=== PATIENT | female | born 1955 | race Caucasian/White ===

== ENCOUNTER 2021-11-07 07:26 | Emergency (ER) | payer MEDICARE ==
[~2021-11-07] VITALS: Ht 170.2 cm; Wt 90.7 kg
[2021-11-07] MEDS ORDERED: METR500 PO (07:58)
[2021-11-07] MEDS ORDERED: OMEP20ER PO (07:58)
[2021-11-07] MEDS ORDERED: NITR100CA PO (07:58)
[2021-11-07] MEDS ORDERED: LISI20 PO (07:58)
[2021-11-07] MEDS ORDERED: OXAYDO5 M1 PO (11:29)
[2021-11-07] MEDS ORDERED: IBUP800 PO (11:29)
[2021-11-07] MEDS ORDERED: Acetaminophen500 MG PO (11:29)
== END 2021-11-07 12:16 | disposition home or self-care (01) ==
LOC: ER 07:26
DX: S52.502A Unspecified fracture of the lower end of left radius, initial encounter for closed fracture (principal); S52.602A Unspecified fracture of lower end of left ulna, initial encounter for closed fracture; I10 Essential (primary) hypertension; Z79.899 Other long term (current) drug therapy; W01.0XXA Fall on same level from slipping, tripping and stumbling without subsequent striking against object, initial encounter
CPT/HCPCS: 25605; 73090; 73100; 96374; 96375; 99283-25; J1170; J1200; J1885; J2060